=== PATIENT | male | born 1990 | race Two or more races ===

== ENCOUNTER 2024-05-02 02:15 | Emergency (ER) | payer MEDICAID ==
[~2024-05-02] VITALS: Ht 188 cm; Wt 67.1 kg
[2024-05-02] MEDS ORDERED: CEFAZOLIN 1 G VIAL ONE (02:55)
[2024-05-02] MEDS: CEFAZOLIN 2 G in IV DEXTROSE 5% 100 ML IV ONE (03:01)
[2024-05-02 03:29] LABS: EOSINOPHILS # (AUTO) 0.1 K/uL (0.0-0.7); EOSINOPHILS % (AUTO) 1.6 % (0.0-7.0); HEMATOCRIT 31.5 % (36.7-47.1); HEMOGLOBIN 10.2 g/dL (12.5-16.3); LYMPHOCYTES # (AUTO) 0.8 K/uL (0.8-4.8); LYMPHOCYTES % (AUTO) 19.4 % (20.5-51.5); MEAN CORPUSCULAR HEMOGLOBIN 25.2 uug (23.8-33.4); MEAN CORPUSCULAR HGB CONC 32 g/dL (32.5-36.3); MEAN CORPUSCULAR VOLUME 78.2 fL (73.0-96.2); MONOCYTES # (AUTO) 0.3 K/uL (0.1-1.30); MONOCYTES % (AUTO) 6.9 % (0.0-11.0); NEUTROPHILS # (AUTO) 3.1 K/uL (1.8-8.9); NEUTROPHILS % (AUTO) 72.1 % (38.5-71.5); PLATELET COUNT (AUTO) 182 K/uL (152-348); RED BLOOD CELL COUNT(AUTO) 4.03 MIL/uL (4.06-5.63); RED CELL DISTRIBUTION WIDTH 19.9 % (12.1-16.2); WHITE BLOOD COUNT (AUTO) 4.4 K/uL (3.6-10.2)
[2024-05-02 03:34] LABS: DIFFERENTIAL COMMENT 1
[2024-05-02 03:49] LABS: CALCIUM 8.7 mg/dL (8.5-10.1); CREATININE 1.1 mg/dL (0.6-1.3); POTASSIUM 3.2 mmol/L (3.5-5.1)
[2024-05-02 03:54] LABS: ALBUMIN 3.4 g/dL (3.4-5.0); BILIRUBIN,TOTAL 0.3 mg/dL (0.2-1.0); TOTAL PROTEIN, SERUM 8.1 g/dL (6.4-8.2)
[2024-05-02 04:11] LABS: C-REACTIVE PROTEIN 0.77 mg/dL (0.00-0.30)
[2024-05-02] MEDS ORDERED: CEFA500C PO ×2 (05:02→15:30)
[2024-05-02] MEDS ORDERED: IBUP-1955 PO ×2 (05:02→15:30)
[2024-05-02 05:35] VITALS: BP 124/62; TEMP 97.8; O2SAT 98
== END 2024-05-02 05:30 | disposition home or self-care (01) ==
LOC: ER 02:22
DX: L03.116 Cellulitis of left lower limb (principal); J45.909 Unspecified asthma, uncomplicated; F17.200 Nicotine dependence, unspecified, uncomplicated; Z79.899 Other long term (current) drug therapy
CPT/HCPCS: 99284; 96365; 80053; 85025; 84145; 86140; 87040; 36415; 83605; J0690; A4606; A4663